=== PATIENT | female | born 1980 | race Caucasian/White ===

== ENCOUNTER 2024-02-25 19:03 | Emergency (ER) | payer SELFPAY ==
[2024-02-25 19:11] VITALS: BP 113/78; PULSE 76; RESP 14; TEMP 36.6; O2SAT 100; BMI 33.6
--- NOTE | 2024-02-25 19:22 | W.ED.SKABFB ---
HPI - Skin/Abscess/Foreign Bdy General: Chief complaint: Skin/Abscess/Foreign Body Stated complaint: Left Big Toe Infection Time Seen by Provider: 02/25/24 19:10 Source: patient Mode of arrival: ambulatory Limitations: no limitations History of Present Illness: 43-year-old female states been having erythema to her right great toe for the last week. States she was seen at urgent care Saturday night started on Bactrim states that she started having some increased redness and a pus pocket that toe currently. She had no incision on Saturday when she seen them. Should she been at work all day today as well wearing shoes. Associated symptoms: Deny chills, fever(s), nausea or vomiting Review of Systems Const: Denies: fever(s), chills, body aches or change in appetite ENMT: Denies: throat pain or dental pain Card: Denies: chest pain Resp: Denies: dyspnea GI: Denies: abdominal pain, nausea, vomiting or diarrhea Musc: Reports: extremity pain and extremity swelling; Denies: neck pain or back pain Skin/Breast: Denies: rash Physical Exam Const: COMMON NORMALS: no acute distress, patient oriented x3 and healthy appearing HENMT: COMMON NORMALS: normocephalic and atraumatic HEAD & SCALP: normocephalic and atraumatic Neck/C-Spine: COMMON NORMALS: full ROM and supple Chest: COMMONS NORMALS: normal inspection of the chest Resp: COMMON NORMALS: normal respiratory effort Extremity: COMMON NORMALS: full ROM NARRATIVE EXTREMITY EXAM: Paronychia with erythema noted to left great toe Neuro: COMMON NORMALS: patient oriented x3, moves all extremities and no focal motor deficits Psych: COMMON NORMALS: mental status grossly normal, Normal thought process present and cooperative THOUGHT PROCESS: Normal thought process present Skin: COMMON NORMALS: no rashes or lesions noted and no wounds GENERAL SKIN EXAM: no rashes or lesions noted Procedures Abscess I/D Site: foot Side (if applicable): left Local Anesthetic: bupivacaine 0.5% Amount of anesthesia used (mL): 6 Technique: incised with #11 blade Irrigation: Yes Packing used?: none Course Vital Signs: Vital signs: Vital Signs Temperature 98 F 02/25/24 19:11 Pulse Rate 76 02/25/24 19:11 Respiratory Rate 14 02/25/24 19:11 Blood Pressure 113/78 02/25/24 19:11 Pulse Oximetry 100 02/25/24 19:11 Oxygen Delivery Me thod Room Air 02/25/24 19:11 MDM - Skin/Abscess/Foreign Bdy Medicial Decision Making Patient presents here with paronychia to left great toe did incise the paronychia she is continue the antibiotics she is doing warm soaks we will get her follow-up with podiatry Medical Records I reviewed the patient's medical records. No radiology studies performed this visit Discharge Plan Discharge Patient Disposition: Home Clinical Impression: Paronychia of great toe of left foot Condition: Stable Discharge Orders: Discharge ED (Routine); Ordered 02/25/24 Ordered By: Gladys Deleon Referrals: Hari Gomez DPM [Physician] - 1-3 days Discharge Diet: Advance as tolerated Discharge Activity: Resume usual activity Patient Instructions: Paronychia (ED) Coding Level of Care Code ED Supervisor [employer] Machine for Olu Grewal
[2024-02-25 20:38] VITALS: BP 115/75; PULSE 71; RESP 15; O2SAT 99
--- NOTE | 2024-02-26 07:31 | DCPLANNER ---
Message sent to Podiatry for follow up on infected toe.
== END 2024-02-25 20:35 | disposition home or self-care (01) ==
PROVIDERS: Emergency Provider Emergency Medicine
DX: L03.032 Cellulitis of left toe (principal)
CPT/HCPCS: 10060; 99282